=== PATIENT | male | born 1985 | race Caucasian/White ===

== ENCOUNTER 2023-07-29 23:46 | Emergency (ER) | payer MEDICAID, OTHER ==
[~2023-07-29] VITALS: Ht 167.6 cm; Wt 64.0 kg
[2023-07-30 00:08] VITALS: O2SAT 100
[2023-07-30] MEDS ORDERED: LORAZEPAM 1MG TABLET PO ONE (06:45)
[2023-07-30 08:18] LABS: BASOPHILS % 0.4 % (0.0-2.0); EOSINOPHILS % 1.2 % (0.0-5.0); HEMATOCRIT. 37.5 % (42.0-52.0); HEMOGLOBIN. 12.5 g/dL (14.0-18.0); LYMPHOCYTES % 34.9 % (20.0-50.0); MEAN CORPUSCULAR HEMOGLOBIN 33.1 pg (28.0-32.0); MEAN CORPUSCULAR HGB CONC 33.3 g/dL (31.0-37.0); MEAN CORPUSCULAR VOLUME 99.3 fL (80.0-94.0); MEAN PLATELET VOLUME 8.4 fl (7.4-10.4); MONOCYTES % 8.5 % (2.0-8.0); PLATELET 335 x1000/uL (130-400); RED BLOOD CELL COUNT 3.78 mill/uL (4.7-6.1); RED CELL DISTRIBUTION WIDTH 14.4 % (11.6-14.6)
[2023-07-30 08:32] LABS: ACETAMINOPHEN < 2 ug/mL (10-30); ALANINE AMINOTRANSFERASE 15 IU/L (10-49); ALBUMIN 4.2 g/dL (3.2-4.8); ASPARTATE AMINOTRANSFERASE 25 IU/L (<34); BILIRUBIN TOTAL 0.4 mg/dL (0.1-1.0); CARBON DIOXIDE 26 mEq/L (21-32); CHLORIDE 103 mEq/L (98-107); CREATININE 0.7 mg/dL (0.6-1.3); GLUCOSE 84 mg/dL (70-105); POTASSIUM 3.7 mEq/L (3.5-5.1); PROTEIN TOTAL 7.6 g/dL (6.0-8.3); SODIUM 138 mEq/L (136-145); UREA NITROGEN BLOOD 10 mg/dL (9-23)
[2023-07-30 08:33] LABS: ETHANOL BLOOD < 10 mg/dL (<10)
[2023-07-30] MEDS: QUETIAPINE FUMARATE 50MG TABLET PO SCH ×2 (10:30→21:00)
[2023-07-30] MEDS ORDERED: HALOPERIDOL LACTATE 5MG/ML VIAL IM ONE (11:00)
[2023-07-30] MEDS ORDERED: LORAZEPAM 2MG/ML INJ IM ONE (11:00)
[2023-07-30] MEDS ORDERED: LORAZEPAM 2MG/ML UD SYRINGE IM NR (11:00)
[2023-07-30] MEDS: HALOPERIDOL LACTATE 5MG/ML VIAL IM ONE ×2 (11:04→11:06)
[2023-07-30] MEDS: DIPHENHYDRAMINE 50MG/ML VIAL IM ONE ×2 (11:04→11:07)
[2023-07-30] MEDS: LORAZEPAM 2MG/ML INJ IM ONE ×2 (11:05→11:07)
[2023-07-31] MEDS: QUETIAPINE FUMARATE 50MG TABLET PO SCH ×2 (09:00→20:56)
[2023-07-31] MEDS ORDERED: LORAZEPAM 1MG TABLET PO ONE ×2 (13:45→21:00)
[2023-07-31] MEDS ORDERED: LORAZEPAM 1MG TABLET PO NR (14:15)
[2023-07-31 20:15] LABS: CLARITY URINE CLEAR (CLEAR); COLOR URINE YELLOW (YELLOW); GLUCOSE URINE NEGATIVE (NEGATIVE); KETONES URINE NEGATIVE (NEGATIVE); LEUKOCYTE ESTERASE URINE NEGATIVE (NEGATIVE); NITRITE URINE NEGATIVE (NEGATIVE); OCCULT BLOOD URINE NEGATIVE (NEGATIVE); PROTEIN URINE NEGATIVE (NEGATIVE); SPECIFIC GRAVITY URINE 1.017 (1.005-1.030)
[2023-07-31 20:22] LABS: *AMPHETAMINES SCREEN URINE NEGATIVE (NEGATIVE); *BARBITURATES SCREEN URINE NEGATIVE (NEGATIVE); *BENZODIAZEPINES SCREEN URINE PRESUMPTIVE POSITIVE (NEGATIVE); *COCAINE SCREEN URINE NEGATIVE (NEGATIVE); CANNABINOID URINE SCREEN PRESUMPTIVE POSITIVE (NEGATIVE); ECSTASY MDMA SCREEN URINE NEGATIVE (NEGATIVE); METHADONE URINE SCREEN Neg (NEGATIVE); OPIATES URINE SCREEN PRESUMPTIVE POSITIVE (NEGATIVE); PHENCYCLIDINE URINE SCREEN NEGATIVE (NEGATIVE)
[2023-08-01] MEDS ORDERED: QUETIAPINE FUMARATE 50MG TABLET PO ONE (03:45)
[2023-08-01] MEDS: QUETIAPINE FUMARATE 50MG TABLET PO SCH ×2 (09:00→21:00)
[2023-08-01] MEDS ORDERED: LORAZEPAM 1MG TABLET PO ONE (15:30)
[2023-08-01] MEDS ORDERED: LORAZEPAM 2MG/ML INJ IM ONE (21:00)
[2023-08-01] MEDS ORDERED: LORAZEPAM 2MG/ML UD SYRINGE IM ONE (21:15)
[2023-08-01] MEDS ORDERED: LORAZEPAM 2MG/ML UD SYRINGE IM SCH (21:45)
[2023-08-02] MEDS: QUETIAPINE FUMARATE 50MG TABLET PO SCH (00:53)
[2023-08-02 02:10] VITALS: TEMP 97.9
[2023-08-02 11:32] VITALS: BP 114/70; PULSE 84; RESP 15
== END 2023-08-02 12:00 | disposition home or self-care (01) ==
LOC: ER 23:46
DX: F41.9 Anxiety disorder, unspecified (principal); F12.10 Cannabis abuse, uncomplicated; Z20.822 Contact with and (suspected) exposure to COVID-19; Z88.8 Allergy status to other drugs, medicaments and biological substances; Z98.890 Other specified postprocedural states
CPT/HCPCS: 96372 ×2; 80053; 80305; 81001; 80307; 80329; 80320; 85025; 36415; 99285; 87426; 71045; C9803; J1200; J1630; J2060 ×2; Z7610 ×2; G0480